=== PATIENT | female | born 1965 | race Caucasian/White ===

== ENCOUNTER 2020-09-14 12:41 | Emergency (ER) | payer OTHER ==
[2020-09-14 13:43] LABS: BASOPHIL 0.4 % (0-2); EOSINOPHIL 0.4 % (0-5); HCT 40.3 % (37.0-47.0); HGB 13.6 g/dl (12.5-16.0); LYMPHOCYTE 23.2 % (15-48); MCH 29.8 pg (25.0-31.0); MCHC 33.7 g/dL (32.0-36.0); MCV 88.4 fL (78.0-100.0); MONOCYTE 10.1 % (0-12); MPV 9.8 fL (6.0-9.5); NEUTROPHIL 65.5 % (41-80); NRBC 0; PLT 261 K/uL (150-400); RBC 4.56 M/uL (4.20-5.40); RDW 13.2 % (11.5-14.0); WBC 9.2 K/uL (4.0-10.5)
[2020-09-14 13:50] LABS: ALBUMIN 3.2 g/dL (3.4-5.0); BILIRUBIN - TOTAL 0.6 mg/dL (0.2-1.0); BUN/CREAT RATIO (CALC) 12.3 RATIO; CREATININE 0.73 mg/dL (0.51-0.95); GLOBULIN (CALCULATION) 4.5 g/dL; TOTAL PROTEIN 7.7 g/dL (6.4-8.2)
[2020-09-14 13:55] LABS: BILIRUBIN 1+ mg/dL (NEGATIVE); BLOOD 2+ Ery/uL (NEGATIVE); CLARITY CLEAR (CLEAR); COLOR YELLOW (YELLOW); GLUCOSE (U) NORMAL (NORMAL); LEUKOCYTES NEGATIVE Leu/uL (NEGATIVE); NITRITE NEGATIVE (NEGATIVE); PROTEIN TRACE (LOW) mg/dL (NEGATIVE); UROBILINOGEN 0.2 mg/dL (0.2-1.0)
[2020-09-14 14:05] LABS: BACTERIA 2+
[2020-09-14] MEDS ORDERED: FLAGYL500 MG PO (15:33)
[2020-09-14] MEDS ORDERED: CIPRO500 M1 PO (15:33)
[2020-09-14] MEDS ORDERED: LEVSIN0.125 MG SL (15:33)
== END 2020-09-14 15:54 | disposition home or self-care (01) ==
LOC: FER 12:41
PROVIDERS: Physician Assistant
DX: K52.9 Noninfective gastroenteritis and colitis, unspecified (principal); Z88.5 Allergy status to narcotic agent
CPT/HCPCS: 36415; 80053; 81001; 83690; 85025; 87045; 87046; 87077; 87186; J7030; Q9967